=== PATIENT | male | born 1950 | race Caucasian/White ===

== ENCOUNTER 2019-05-17 08:25 | Day surgery (SDC) | payer OTHER, BC ==
[2019-05-14 17:48] VITALS: BMI 32.3
[2019-05-17 08:42] VITALS: TEMP 97.6
[2019-05-17 11:00] VITALS: BP 110/66; PULSE 69
--- NOTE | 2019-05-18 17:03 | PATH ---
Surgical Pathology Report Patient Name: JOHANN BUTLER [facility]. Rec. #: [id number] /Age/Gender: 1950 (Age: 68) / M Account: [id number] Location: [facility] Taken: 05/17/2019 Received: 05/17/2019 Reported: 05/18/2019 Physicians: Jignesh Johns M.D. Specimen(s) Received RIGHT COLON Clinical History Family history of polyps Postoperative diagnosis: Colon polyp, diverticulosis Final Diagnosis COLON, RIGHT, POLYPECTOMY: HYPERPLASTIC POLYP. Electronically Signed Daniella Betancourt M.D. Gross Description Received in formalin, labeled "polypectomy right colon" is a roque, irregular portion of soft tissue measuring 0.8 cm. in greatest dimension. The specimen is submitted in toto in one cassette. /05/17/2019 saudi05/17/2019
== END 2019-05-17 11:00 | disposition home or self-care (01) ==
LOC: FASU-ENDO 08:25
PROVIDERS: ATTEND Internal Medicine Gastroenterology
PROC: 0DBK8ZX Excision of Ascending Colon, Via Natural or Artificial Opening Endoscopic, Diagnostic (ICD-10-PCS; principal; 2019-05-17 10:06)
DX: Z12.11 Encounter for screening for malignant neoplasm of colon (principal); Z83.71 Family history of colonic polyps; K63.5 Polyp of colon; K57.30 Diverticulosis of large intestine without perforation or abscess without bleeding
CPT/HCPCS: 88305-TC